=== PATIENT | female | born 1955 | race Caucasian/White ===

== ENCOUNTER 2016-12-05 16:30 | Emergency (ER) | payer OTHER ==
[~2016-12-05] VITALS: Ht 157.5 cm; Wt 56.5 kg
[~2016-12-05 16:30] MED LIST: AMLO-218 PO; FLUO20CA22 PO; HYDR25TA6 PO; LORA0.5T PO
[2016-12-05 16:44] VITALS: Ht 157.5 cm; Wt 56.5 kg
[2016-12-05 18:44] LABS: ADD UMIC YES; UR ASCORBIC ACID NEGATIVE (NEGATIVE); UR BACTERIA FEW /HPF (NONE SEEN); UR BILIRUBIN (Dip) NEGATIVE (NEGATIVE); UR BLOOD (Dip) 1+ mg/dL (NEGATIVE); UR CLARITY SLIGHTLY CLOUDY (CLEAR); UR COLOR YELLOW (YELLOW); UR GLUCOSE (Dip) NEGATIVE (NEGATIVE); UR KETONES (Dip) NEGATIVE (NEGATIVE); UR LEUKOCYTE ESTERASE (Dip) 3+ Leu/ul (NEGATIVE); UR NITRITE (Dip) POSITIVE (NEGATIVE); UR RBC 9 /HPF (0-5); UR SPECIFIC GRAVITY (Dip) 1.008 (1.003-1.030); UR SQUAMOUS EPITHELIAL CELL FEW /HPF (FEW); UR TOTAL PROTEIN (Dip) NEGATIVE (NEGATIVE); UR UROBILINOGEN (Dip) NEGATIVE (NEGATIVE)
[2016-12-05] MEDS ORDERED: ACET500C5 PO (18:48)
[2016-12-05] MEDS ORDERED: CEPH-443 PO (18:48)
--- NOTE | 2016-12-05 18:55 | ERD ---
ER Documentation Chief Complaint Date/Time DATE: 12/05/16 TIME: 18:52 Chief Complaint Complains of painful urination HPI 61-year-old female presents with suprapubic pain and dysuria for the last week. She denies fevers, vomiting, flank pain, additional complaints. Denies any chest pain or shortness of breath. Patient has previous visits here for alcohol intoxication. ROS All systems reviewed and are negative except as per history of present illness. Medications Home Meds Active Scripts Acetaminophen* (Tylophen*) 500 Mg Capsule, 1 CAP PO Q6H Y for PAIN AND OR ELEVATED TEMP, #15 CAP Prov:BECCA PORTILLO MD 12/05/16 Cephalexin* (Keflex*) 500 Mg Capsule, 500 MG PO QID for 5 Days, CAP Prov:BECCA PORTILLO MD 12/05/16 Reported Medications Fluoxetine Hcl* (Fluoxetine Hcl*) 20 Mg Capsule, 20 MG PO DAILY, CAP 06/25/14 Lorazepam* (Lorazepam*) 0.5 Mg Tablet, 0.5 MG PO HS Y for ANXIETY, TAB 06/25/14 Hydrochlorothiazide* (Hydrochlorothiazide*) 25 Mg Tab, 25 MG PO DAILY, TAB 06/25/14 Amlodipine Besylate* (Norvasc*) 10 Mg Tablet, 10 MG PO DAILY, TAB 06/25/14 Allergies Allergies: Coded Allergies: No Known Allergy (Verified , 12/05/16) PMhx/Soc History of Surgery: Yes (rt. Salphingectomy) Anesthesia Reaction: No Hx Neurological Disorder: No Hx Respiratory Disorders: No Hx Cardiac Disorders: No Hx Psychiatric Problems: No Hx Miscellaneous Medical Probl: Yes (HTN, ETOH Abuse) Hx Alcohol Use: Yes Hx Substance Use: Yes Hx Tobacco Use: Yes Smoking Status: Current every day smoker Physical Exam Vitals Vital Signs Date Time Temp Pulse Resp B/P Pulse Ox O2 Delivery O2 Flow Rate FiO2 12/05/16 16:44 99.1 111 20 140/85 96 Physical Exam Const: [], [id number]. Head: Atraumatic Eyes: Normal Conjunctiva ENT: Normal External Ears, Nose and Mouth. Neck: Full range of motion..~ No meningismus. Resp: Clear to auscultation bilaterally Cardio: Regular rate and rhythm, no murmurs Abd: Soft, normal suprapubic tenderness. No tenderness at McBurney's point no rebound. No Saldana sign. non distended. Normal bowel sounds Skin: No petechiae or rashes Back: No midline or flank tenderness Ext: No cyanosis, or edema Neur: Awake and alert Psych: Normal Mood and Affect Results 24 hrs Laboratory Tests Test 12/05/16 18:10 Urine Color YELLOW Urine Clarity SLIGHTLY CLOUDY Urine pH 6.0 Urine Specific [place] 1.008 Urine Ketones NEGATIVEmg/dL Urine Nitrite POSITIVEmg/dL Urine Bilirubin NEGATIVEmg/dL Urine Urobilinogen NEGATIVEmg/dL Urine Leukocyte Esterase 3+Mildred/ul Urine Microscopic RBC 9/HPF Urine Microscopic WBC 21/HPF Urine Squamous Epithelial Cells FEW/HPF Urine Bacteria FEW/HPF Urine Hemoglobin 1+mg/dL Urine Glucose NEGATIVEmg/dL Urine Total Protein NEGATIVEmg/dl Current Medications Medications (Trade) Dose Ordered Sig/Poornima Route PRN Reason Start Time Stop Time Status Last Admin Dose Admin Cephalexin (Keflex) 1,000 mg ONCE ONCE PO 12/05/16 19:00 12/05/16 19:01 DC Acetaminophen (Tylenol Tab) 650 mg ONCE ONCE PO 12/05/16 19:00 12/05/16 19:01 DC Procedures/MDM And shows positive nitrites, leukocytes and hemoglobin. Keflex 1 g by mouth and Tylenol ordered. Patient was nowhere to be found for repeat vitals and serial examination. Good rell effort was made to locate the patient to no avail. Departure Diagnosis: Primary Impression: UTI (urinary tract infection) Urinary tract infection type: acute cystitis Hematuria presence: without hematuria Qualified Code: N30.00 - Acute cystitis without hematuria Condition: Stable Patient Instructions: Understanding Urinary Tract Infections (UTIs) Additional Instructions: LYLE BURNETT. NATA INFECCION EN ORINA. Cheque otro vez con bella doctor primario en el proximo gutierrez or regresa para mas o nueva simptomas. BECCA PORTILLO MD Dec 05, 2016 18:55 Additional Instructions: LYLE BURNETT. NATA INFECCION EN ORINA. Cheque otro vez con bella doctor primario en el proximo gutierrez or regresa para mas o nueva simptomas. BECCA PORTILLO MD Dec 05, 2016 18:55
[2016-12-05] MEDS ORDERED: CEPHALEXIN 500 MG CAP PO ONE (19:00)
[2016-12-05] MEDS ORDERED: ACETAMINOPHEN 325 MG TAB PO ONE (19:00)
== END 2016-12-05 19:36 | disposition left against medical advice (07) ==
LOC: FTE 16:30
DX: N30.00 Acute cystitis without hematuria (principal); I10 Essential (primary) hypertension; F17.210 Nicotine dependence, cigarettes, uncomplicated
CPT/HCPCS: 81001; Z7502; 99283

== ENCOUNTER 2017-05-18 03:28 | Emergency (ER) | END 2017-05-18 07:00 | disposition left against medical advice (07) ==

== ENCOUNTER 2017-11-01 23:04 | Emergency (ER) | END 2017-11-02 01:15 | disposition left against medical advice (07) ==

== ENCOUNTER 2018-01-15 19:03 | Emergency (ER) | END 2018-01-15 22:35 | disposition left against medical advice (07) ==